=== PATIENT | male | born 1950 | race Caucasian/White ===

== ENCOUNTER 2019-08-16 07:50 | Day surgery (SDC) | payer MEDICARE, OTHER ==
[~2019-08-16] VITALS: Ht 172.7 cm; Wt 122.7 kg
[~2019-08-16 07:50] MED LIST: ALOGLIPTIN25 MG PO; AMIT50 PO; AMLO10 PO; ASPI81EC; ATEN25 PO; ATOR40TA PO; Aspir 8181 MG PO; BUSP5 PO; CARV25 PO; CITA20 PO; Crestor40 MG PO; HYDCHL12.5; LISI20 PO; METF500C PO; OMEP20ER; OMEP20ER PO; ONDA8 PO; ONDA8ODT MM; ROSU10TA PO; SERT100 PO
--- NOTE | 2019-08-16 13:28 | NUR ---
DISCHARGE: PT REMAINED A&OX3 AND DENIED ANY PAIN DURING RECOVERY. IV DC'D BY ZULEIKA Barth RN-SITE REMAINS STABLE. R RADIAL SITE-TR BAND REMOVED-CLOTH DOT BANDAGE AND WHITE BOARD IN FLFMF-SAA-PM HEMATOMA NOTED. DISCHARGE PAPERWORK GONE OVER WITH PT. PT VERBALLY STATED THE UNDERSTANDING OF THE DISCHARGE EDUCATION AND DENIED ANY QUESTIONS AT THIS TIME. PT WHEELED OUT BY ESCORT.
== END 2019-08-16 13:00 | disposition home or self-care (01) ==
LOC: MHTC 07:50
PROC: 4A023N7 Measurement of Cardiac Sampling and Pressure, Left Heart, Percutaneous Approach (ICD-10-PCS; principal; 2019-08-16)
PROC: B201YZZ Plain Radiography of Multiple Coronary Arteries using Other Contrast (ICD-10-PCS; principal; 2019-08-16)
DX: R07.9 Chest pain, unspecified (principal); R94.39 Abnormal result of other cardiovascular function study; I11.9 Hypertensive heart disease without heart failure; E78.5 Hyperlipidemia, unspecified; E66.01 Morbid (severe) obesity due to excess calories; G47.30 Sleep apnea, unspecified; Z99.89 Dependence on other enabling machines and devices; Z79.82 Long term (current) use of aspirin; Z79.84 Long term (current) use of oral hypoglycemic drugs; Z79.02 Long term (current) use of antithrombotics/antiplatelets; Z88.8 Allergy status to other drugs, medicaments and biological substances
CPT/HCPCS: 93005; 93010; 93458; 99152; 99153; C1769; C1894; J1644; J2250; J3010; J7030; Q9967

== ENCOUNTER 2020-03-23 15:24 | Emergency (ER) | payer OTHER, MEDICARE ==
[~2020-03-23] VITALS: Ht 175.3 cm; Wt 122.0 kg
[2020-03-23 16:07] LABS: BASOPHILS ABSOLUTE AUTO 0.07 K/mm3 (0.00-0.23); BASOPHILS PERCENT AUTO 1 % (0-2); EOSINOPHILS ABSOLUTE AUTO 0.43 K/mm3 (0.00-0.68); EOSINOPHILS PERCENT AUTO 4 % (0-6); Hematocrit 44.3 % (37.0-53.0); Hemoglobin 14.7 g/dL (13.5-17.5); IMMATURE GRAN ABSOLUTE AUTO 0.05 K/mm3 (0.00-0.10); IMMATURE GRAN PERCENT AUTO 0 % (0-1); LYMPHOCYTES ABSOLUTE AUTO 2.68 K/mm3 (0.84-5.20); LYMPHOCYTES PERCENT AUTO 23 % (21-46); MONOCYTES ABSOLUTE AUTO 0.81 K/mm3 (0.16-1.47); MONOCYTES PERCENT AUTO 7 % (4-13); Mean Corpuscular HGB 31.1 pg (26.0-34.0); Mean Corpuscular HGB Conc 33.2 g/dL (31.5-36.5); Mean Corpuscular Volume 94 fL (80-100); NEUTROPHILS ABSOLUTE AUTO 7.84 K/mm3 (1.96-9.15); NEUTROPHILS PERCENT AUTO 66 % (41-73); Platelet Count 328 K/mm3 (150-400); RDW Coefficient Variation 14.2 % (11.7-14.2); RDW Standard Deviation 49.2 fL (35.1-46.3); Red Blood Cell Count 4.72 M/mm3 (4.30-5.90); White Blood Cell Count 11.88 K/mm3 (4.00-11.30)
[2020-03-23 16:27] LABS: Albumin, Blood 3.8 g/dL (3.4-5.0); Bilirubin, Total 0.5 mg/dL (0.1-1.0); Bun/Creatinine Ratio 17.4 (12.0-20.0); Calcium, Blood 9.4 mg/dL (8.5-10.1); Creatinine, Blood 1.32 mg/dL (0.60-1.20); Globulin, Blood 3.8 g/dL (2.2-4.0); Potassium, Blood 4.5 mmol/L (3.5-5.5); Total Protein, Blood 7.6 g/dL (6.4-8.2)
[2020-03-23 18:19] LABS: Source, Urine Clean Catch
[2020-03-23 18:41] LABS: Appearance, Urine Clear (Clear); Bilirubin, Urine Neg (Neg); Blood, Urine Neg (Neg); Color, Urine Yellow (P-Yellow); Glucose Qualitative, Urine Neg (Neg); Ketones, Urine Neg (Neg); Leukocyte Esterase, Urine Neg (Neg); Nitrite, Urine Neg (Neg); Protein, Urine 2+ (Neg); Specific Gravity, Urine 1.015 (1.003-1.022); Urobilinogen, Urine 1+ (Normal)
[2020-03-23 18:58] LABS: Bacteria Rare /hpf; Hyaline Casts Rare /lpf (0-2); Mucus Light (0-Heavy); Red Blood Cells, Urine Not Seen /hpf (0-2); Squamous Epithelial Cells Rare /hpf (Few); White Blood Cells, Urine 0-2 /hpf (0-5)
== END 2020-03-23 18:57 | disposition home or self-care (01) ==
LOC: ER 15:24
PROVIDERS: Physician Assistant
DX: R10.9 Unspecified abdominal pain (principal); R11.0 Nausea; R42 Dizziness and giddiness; I10 Essential (primary) hypertension; E78.5 Hyperlipidemia, unspecified; E11.9 Type 2 diabetes mellitus without complications; Z79.82 Long term (current) use of aspirin; Z79.84 Long term (current) use of oral hypoglycemic drugs; Z79.899 Other long term (current) drug therapy
CPT/HCPCS: 36415; 80053; 81001; 83690; 84484; 85025; 93005; 93010; 99284-25

== ENCOUNTER 2021-08-29 08:08 | Day surgery (SDC) | payer MEDICARE, OTHER ==
[~2021-08-29] VITALS: Ht 175.3 cm; Wt 112.0 kg
[~2021-08-29 08:08] MED LIST changes: +HYDCHL25 PO; +LOSA50 PO; +SPIR25 PO; +TRAZ50 PO
--- NOTE | 2021-08-29 09:58 | NUR ---
REPORT TO FAUSTINO BORREGO RN.
--- NOTE | 2021-08-29 10:14 | NUR ---
SMALL ABRASION L GROIN OCCURED DURING CLIP PREP AND PT MOVEMENT
--- NOTE | 2021-08-29 11:26 | NUR ---
08/29/21 1126 Ariel Vázquez ANESTHESIA = SPINAL PER DR. BOURNE, LMA INSERTED TO MAINTAIN AIRWAY
--- NOTE | 2021-08-29 19:00 | NUR ---
SHIFT SUMMARY PT'S SPINAL WORE OFF AROUND 1630, BUT PAIN MANAGED w/ TYLENOL & TORADOL. EATING, DRINKING, & VOIDING; URINE DARK, MINIMAL, SO IVF CONTINUED. NOT OOB DUE TO SAFETY.
[2021-08-30 04:11] LABS: BASOPHILS ABSOLUTE AUTO 0.03 K/mm3 (0.00-0.23); BASOPHILS PERCENT AUTO 0 % (0-2); EOSINOPHILS PERCENT AUTO 0 % (0-6); Hematocrit 40.6 % (37.0-53.0); Hemoglobin 12.8 g/dL (13.5-17.5); IMMATURE GRAN ABSOLUTE AUTO 0.11 K/mm3 (0.00-0.10); IMMATURE GRAN PERCENT AUTO 1 % (0-1); LYMPHOCYTES ABSOLUTE AUTO 1.41 K/mm3 (0.84-5.20); LYMPHOCYTES PERCENT AUTO 8 % (21-46); MONOCYTES ABSOLUTE AUTO 1.06 K/mm3 (0.16-1.47); MONOCYTES PERCENT AUTO 6 % (4-13); Mean Corpuscular HGB 30.3 pg (26.0-34.0); Mean Corpuscular HGB Conc 31.5 g/dL (31.5-36.5); Mean Corpuscular Volume 96 fL (80-100); Mean Platelet Volume 9.7 fL (9.1-12.4); NEUTROPHILS ABSOLUTE AUTO 14.33 K/mm3 (1.96-9.15); NEUTROPHILS PERCENT AUTO 85 % (41-73); Platelet Count 302 K/mm3 (150-400); RDW Coefficient Variation 13.8 % (11.7-14.2); RDW Standard Deviation 48.7 fL (35.1-46.3); Red Blood Cell Count 4.23 M/mm3 (4.30-5.90); White Blood Cell Count 16.94 K/mm3 (4.00-11.30)
[2021-08-30 04:31] LABS: Magnesium, Blood 2.2 mg/dL (1.6-2.4)
[2021-08-30 04:39] LABS: Bun/Creatinine Ratio 15.8 (12.0-20.0); Creatinine, Blood 2.03 mg/dL (0.60-1.20); Potassium, Blood 5.2 mmol/L (3.5-5.5)
--- NOTE | 2021-08-30 05:17 | NUR ---
DIRECTOR AUTO SUMMARY PT AAOX4 AND PLEASANT. L HIP REPAIR DRESSING C/D/I. PAIN MOSTLY MANAGED WITH TORADOL AND TYLENOL, DID MEDICATED WITH 5 MG OXYCODONE X1 TONIGHT FOR SOME BREAKTHROUGH PAIN WHICH BROUGHT PT BACK DOWN TO A COMFORTABLE LEVEL. PT REPORTS BEING EAGER TO WORK WITH PHYSICAL THERAPY SO THAT HE CAN RETURN HOME. VSS, WILL CONTINUE TO MONITOR.
--- NOTE | 2021-08-30 09:11 | NUR ---
ATTEMPTED TO GIVE PATIENT TUMS THAT WAS ORDERED, PATIENT STATED HE BURPED AND DOES NOT NEED THE TUMS. HE NO LONGER HAS THE DISCOMFORT IN CHEST AFTER BURPING.
--- NOTE | 2021-08-30 10:13 | NUR ---
DISCHARGE INSTUCTIONS GIVEN TO PATIENT AT THIS TIME. PATIENT VERBALIZED UNDERSTANDING. NO SIGNS OR SYMPTOMS ACUTE DISTRESS NOTED. NO COMPLIANTS OF PAIN. VS WNL, BS WNL.
== END 2021-08-30 17:24 | disposition home or self-care (01) ==
LOC: ORSCMMR 08:08 → SURS 08:08 → ORD 10:45 → ORSCMMR 10:45 → SURS 13:23 → ORSCMMR 08-30 17:24
PROVIDERS: Orthopaedic Surgery
PROC: 0SRB0JA Replacement of Left Hip Joint with Synthetic Substitute, Uncemented, Open Approach (ICD-10-PCS; principal; 2021-08-29 10:45)
PROC: 8E0YXBZ Computer Assisted Procedure of Lower Extremity (ICD-10-PCS; principal; 2021-08-29 10:45)
DX: M16.12 Unilateral primary osteoarthritis, left hip (principal); E11.9 Type 2 diabetes mellitus without complications; I10 Essential (primary) hypertension; N18.9 Chronic kidney disease, unspecified; E78.00 Pure hypercholesterolemia, unspecified; G47.33 Obstructive sleep apnea (adult) (pediatric); Z89.511 Acquired absence of right leg below knee; Z96.659 Presence of unspecified artificial knee joint; Z79.84 Long term (current) use of oral hypoglycemic drugs; E66.9 Obesity, unspecified; Z68.36 Body mass index [BMI] 36.0-36.9, adult; Z79.899 Other long term (current) drug therapy
CPT/HCPCS: 36415; 72170; 80048; 82947; 83735; 85025; 94762; 97110; 97161; 97165; 97535; A9270; C1713; C1776; J0171; J0690; J0735; J1100; J1885; J2370; J2405; J2704; J2795; J3010; J3370; J7050; J7120

== ENCOUNTER 2021-10-12 10:15 | Emergency (ER) | payer MEDICARE, OTHER ==
[~2021-10-12] VITALS: Ht 175.3 cm; Wt 108.9 kg
[2021-10-12 11:14] LABS: BASOPHILS ABSOLUTE AUTO 0.05 K/mm3 (0.00-0.23); BASOPHILS PERCENT AUTO 0 % (0-2); EOSINOPHILS ABSOLUTE AUTO 0.08 K/mm3 (0.00-0.68); EOSINOPHILS PERCENT AUTO 0 % (0-6); Hematocrit 44.4 % (37.0-53.0); Hemoglobin 13.8 g/dL (13.5-17.5); IMMATURE GRAN ABSOLUTE AUTO 0.09 K/mm3 (0.00-0.10); IMMATURE GRAN PERCENT AUTO 1 % (0-1); LYMPHOCYTES ABSOLUTE AUTO 1.56 K/mm3 (0.84-5.20); LYMPHOCYTES PERCENT AUTO 9 % (21-46); MONOCYTES ABSOLUTE AUTO 1.19 K/mm3 (0.16-1.47); MONOCYTES PERCENT AUTO 7 % (4-13); Mean Corpuscular HGB 30.7 pg (26.0-34.0); Mean Corpuscular HGB Conc 31.1 g/dL (31.5-36.5); Mean Corpuscular Volume 99 fL (80-100); Mean Platelet Volume 10.1 fL (9.1-12.4); NEUTROPHILS ABSOLUTE AUTO 15.21 K/mm3 (1.96-9.15); NEUTROPHILS PERCENT AUTO 84 % (41-73); Platelet Count 275 K/mm3 (150-400); RDW Coefficient Variation 13.9 % (11.7-14.2); RDW Standard Deviation 50.6 fL (35.1-46.3); White Blood Cell Count 18.18 K/mm3 (4.00-11.30)
[2021-10-12 11:31] LABS: Alanine Aminotransfer (ALT/SGP 16 U/L (12-78); Albumin, Blood 3.3 g/dL (3.4-5.0); Albumin/Globulin Ratio 0.8 (0.8-1.8); Alk Phos 98 U/L (50-136); Anion Gap 7 mmol/L (6-16); Aspartate Aminotrans (AST/SGOT 32 U/L (12-37); Blood Urea Nitrogen 12 mg/dL (8-24); Bun/Creatinine Ratio 10.1 (12.0-20.0); CO2, Blood 22 mmol/L (21-32); Calcium, Blood 9.2 mg/dL (8.5-10.1); Chloride, Blood 108 mmol/L (98-108); Creatinine, Blood 1.19 mg/dL (0.60-1.20); Glomerular Filtration Rate >60 (60-); Glucose, Blood 115 mg/dL (70-99); Potassium, Blood 4.9 mmol/L (3.5-5.5); Sodium, Blood 137 mmol/L (136-145); Total Protein, Blood 7.3 g/dL (6.4-8.2)
[2021-10-12 11:48] LABS: Source, Urine Voided
[2021-10-12 11:54] LABS: Appearance, Urine Hazy (Clear); Bilirubin, Urine Neg (Neg); Blood, Urine 5+ (Neg); Color, Urine Yellow (P-Yellow); Glucose Qualitative, Urine Neg (Neg); Ketones, Urine 1+ (Neg); Leukocyte Esterase, Urine 2+ (Neg); Nitrite, Urine Neg (Neg); Protein, Urine 2+ (Neg); Urobilinogen, Urine 1+ (Normal)
[2021-10-12 12:25] LABS: Squamous Epithelial Cells Rare /hpf (Few)
[2021-10-12 12:26] LABS: Bacteria Mod /hpf
[2021-10-12 12:31] LABS: Red Blood Cells, Urine 25-50 /hpf (0-2)
[2021-10-12] MEDS ORDERED: CEPH500 PO (13:41)
== END 2021-10-12 13:50 | disposition home or self-care (01) ==
LOC: ER 10:15
PROVIDERS: Emergency Medicine; Physician Assistant
DX: N30.00 Acute cystitis without hematuria (principal); I10 Essential (primary) hypertension; E78.5 Hyperlipidemia, unspecified; E11.9 Type 2 diabetes mellitus without complications; Z88.8 Allergy status to other drugs, medicaments and biological substances; Z79.82 Long term (current) use of aspirin; Z79.899 Other long term (current) drug therapy
CPT/HCPCS: 36415; 74177; 80053; 81001; 85025; 87077; 87086; 87186; 99284-25; A9270; Q9967